=== PATIENT | female | born 1955 | race Caucasian/White ===

== ENCOUNTER 2021-07-26 16:24 | Observation (INO) ==
[2021-07-26] MEDS ORDERED: Ondansetron ODT 4 MG TAB.RAPDIS SL PRN (22:09)
[2021-07-26] MEDS ORDERED: Melatonin 3 MG TABLET PO PRN (22:09)
[2021-07-26] MEDS ORDERED: Naloxone 0.4 MG/ML INJ IVP PRN (22:09)
[2021-07-26] MEDS ORDERED: Albuterol 2.5 MG/3 ML NEBULIZER IH PRN (22:09)
[2021-07-26] MEDS ORDERED: Ipratropium/Albuterol Neb 3 ML IH PRN (22:15)
[2021-07-26] MEDS ORDERED: Dextrose Gel 15 GM/37.5 ML TUBE PO PRN ×2 (22:20)
[2021-07-26] MEDS ORDERED: D5% in Water 1,000 ML IVC PRN (22:20)
[2021-07-26] MEDS ORDERED: *HR* Dextrose 50 % in Water (Syg) 50 ML SYRINGE IVP PRN (22:20)
[2021-07-26] MEDS ORDERED: hydrOXYzine pamoate 25 MG CAPSULE PO PRN (22:32)
[2021-07-26 23:23] LABS: VBG HCO3 26 mEq/L (21-27); VBG PCO2 49 mmHg (41-51); VBG PH 7.34 pH Units (7.32-7.42); VBG PO2 59 mmHg (25-50)
[2021-07-26 23:33] LABS: Hematocrit 37.1 % (35.3-44.9); Hemoglobin 11.7 g/dL (11.5-15.4); Mean Corpuscular HGB Conc 31.5 g/dL (31.6-35.5); Mean Corpuscular Hemoglobin 31.2 pg (28.0-33.3); Mean Corpuscular Volume 98.9 fL (83.0-100.0); Mean Platelet Volume 10.7 fL (9.4-12.4); Platelet Count 222 K/mcL (140-400); Red Blood Count 3.75 M/mcL (3.82-4.97); Red Cell Distribution Width 13.6 % (11.5-14.5); White Blood Count 6.8 K/mcL (4.3-11.1)
[2021-07-26] MEDS: Pregabalin 75 MG CAPSULE PO SCH (23:37)
[2021-07-26] MEDS: Insulin LISPRO 300 UNITS/3 ML VIAL SUBQ SCH (23:38)
[2021-07-26 23:39] LABS: Estimated Average Glucose 189 mg/dl; Hemoglobin A1C 8.2 %
[2021-07-26 23:43] LABS: Albumin/Globulin Ratio 1.4 (1.1-2.2); Bilirubin,Total 0.4 mg/dL (0.3-1.0); Calcium 8.9 mg/dL (8.6-10.3); Globulin 2.9 g/dL (2.4-3.5); Potassium 4.1 mEq/L (3.5-5.1); Total Protein 6.9 g/dL (6.4-8.9)
[2021-07-26 23:56] LABS: Magnesium 2.2 mg/dL (1.6-2.6)
[2021-07-27 04:09] LABS: Sodium, Urine 33.2 mEq/L
[2021-07-27 04:14] LABS: Bacteria,Urine Few per hpf (None-Few); Bilirubin,Urine Negative (Negative); Blood,Urine Negative (Negative); Clarity,Urine Clear (Clear); Color,Urine Light-Yellow (Yellow); Glucose,Urine (UA) >=1000 mg/dL (Normal); Hyaline Casts,Urine Few per lpf (None Seen); Ketones,Urine Negative (Negative); Leukocyte Esterase,Urine Negative (Negative); Nitrite,Urine Negative (Negative); Protein,Urine Trace mg/dL (Neg-Trace); RBC,Urine 0-3 per hpf (0-3); Specific Gravity,Urine 1.017 (1.010-1.025); Squamous Epithelial Cell,Urine Few per hpf (None-Few); Urobilinogen,Urine Normal (Normal); WBC,Urine 0-3 per hpf (0-3)
[2021-07-27 04:50] LABS: Adenovirus Not Detected (Not Detect); Bordetella Pertussis Not Detected (Not Detect); Chlamydophila pneumoniae Not Detected (Not Detect); Coronavirus 229E Not Detected (Not Detect); Coronavirus HKU1 Not Detected (Not Detect); Coronavirus NL63 Not Detected (Not Detect); Coronavirus OC43 Not Detected (Not Detect); Human Metapneumovirus Not Detected (Not Detect); Human Rhinovirus/Enterovirus Not Detected (Not Detect); Influenza A Subtype 2009 H1 Not Detected (Not Detect); Influenza B Not Detected (Not Detect); Mycoplasma pneumoniae Not Detected (Not Detect); Parainfluenza Virus 1 Not Detected (Not Detect); Parainfluenza Virus 2 Not Detected (Not Detect); Parainfluenza Virus 3 Not Detected (Not Detect); Parainfluenza Virus 4 Not Detected (Not Detect); Respiratory Syncytial Virus Not Detected (Not Detect); SARS-CoV-2 Not Detected (Not Detect)
[2021-07-27] MEDS: Levothyroxine 25 MCG TABLET PO SCH (06:00)
[2021-07-27] MEDS: Insulin LISPRO 300 UNITS/3 ML VIAL SUBQ SCH ×4 (08:55→20:11)
[2021-07-27] MEDS ORDERED: Aspirin Enteric Coated 81 MG Tablet PO SCH (09:00)
[2021-07-27] MEDS ORDERED: Apixaban 5 MG TABLET PO SCH (09:00)
[2021-07-27] MEDS ORDERED: Pregabalin 75 MG CAPSULE PO SCH (09:00)
[2021-07-27] MEDS ORDERED: Furosemide 40 MG TABLET PO SCH (09:00)
[2021-07-27] MEDS: Aspirin Enteric Coated 81 MG Tablet PO SCH (09:09)
[2021-07-27] MEDS: *HR* Amiodarone 200 MG TABLET PO SCH (09:09)
[2021-07-27] MEDS: predniSONE 20 MG TABLET PO SCH (09:09)
[2021-07-27] MEDS: Pregabalin 75 MG CAPSULE PO SCH ×2 (09:09→20:08)
[2021-07-27] MEDS: Pantoprazole 40 MG VIAL IVP SCH (09:10)
[2021-07-27] MEDS: Folic Acid 1 MG TABLET PO SCH (09:10)
[2021-07-27] MEDS: Azithromycin 250 MG TABLET PO SCH (16:05)
[2021-07-27] MEDS: Acetaminophen 325 MG TABLET PO PRN (18:14)
[2021-07-27] MEDS: Artificial Tears SOLN 15 ML BOTTLE RIGHT EYE SCH ×2 (18:23→22:09)
[2021-07-27] MEDS ORDERED: Insulin LISPRO 300 UNITS/3 ML VIAL SUBQ SCH (21:00)
[2021-07-28] MEDS: methocarbamoL 750 MG TABLET PO SCH ×3 (00:56→17:02)
[2021-07-28 03:29] LABS: Hematocrit 37.5 % (35.3-44.9); Hemoglobin 12.1 g/dL (11.5-15.4); Mean Corpuscular HGB Conc 32.3 g/dL (31.6-35.5); Mean Corpuscular Hemoglobin 31.8 pg (28.0-33.3); Mean Corpuscular Volume 98.4 fL (83.0-100.0); Mean Platelet Volume 10.8 fL (9.4-12.4); Platelet Count 260 K/mcL (140-400); Red Blood Count 3.81 M/mcL (3.82-4.97); Red Cell Distribution Width 13.7 % (11.5-14.5); White Blood Count 8.1 K/mcL (4.3-11.1)
[2021-07-28 03:48] LABS: Calcium 8.9 mg/dL (8.6-10.3); Magnesium 2.3 mg/dL (1.6-2.6); Potassium 4.1 mEq/L (3.5-5.1)
[2021-07-28] MEDS: Acetaminophen 325 MG TABLET PO PRN (05:59)
[2021-07-28] MEDS: Levothyroxine 25 MCG TABLET PO SCH (05:59)
[2021-07-28] MEDS: Insulin LISPRO 300 UNITS/3 ML VIAL SUBQ SCH ×4 (08:40→21:50)
[2021-07-28] MEDS: predniSONE 20 MG TABLET PO SCH (08:48)
[2021-07-28] MEDS: Pregabalin 75 MG CAPSULE PO SCH ×2 (08:48→20:43)
[2021-07-28] MEDS: Pantoprazole 40 MG VIAL IVP SCH (08:48)
[2021-07-28] MEDS: Aspirin Enteric Coated 81 MG Tablet PO SCH (08:48)
[2021-07-28] MEDS: *HR* Amiodarone 200 MG TABLET PO SCH (08:49)
[2021-07-28] MEDS: Folic Acid 1 MG TABLET PO SCH (08:49)
[2021-07-28] MEDS: Artificial Tears SOLN 15 ML BOTTLE RIGHT EYE SCH ×4 (08:52→20:43)
[2021-07-28] MEDS: Azithromycin 250 MG TABLET PO SCH (08:52)
[2021-07-28] MEDS ORDERED: Simethicone 40 MG/0.6 ML MLS IR ONE (11:48)
[2021-07-28] MEDS ORDERED: Lidocaine -MPF 2% 5 ML VIAL ONE (12:40)
[2021-07-28] MEDS: Levalbuterol Neb 1.25 MG/3 ML IH SCH ×2 (16:33→16:44)
[2021-07-28 23:35] VITALS: TEMP 97.5
[2021-07-29] MEDS: methocarbamoL 750 MG TABLET PO SCH ×2 (00:36→07:56)
[2021-07-29] MEDS: Levalbuterol Neb 1.25 MG/3 ML IH SCH ×2 (02:01→07:40)
[2021-07-29 04:47] LABS: Calcium 8.6 mg/dL (8.6-10.3); Potassium 4.3 mEq/L (3.5-5.1)
[2021-07-29] MEDS: Levothyroxine 25 MCG TABLET PO SCH ×2 (06:29→07:56)
[2021-07-29 07:40] VITALS: BP 164/90; PULSE 64
[2021-07-29] MEDS: predniSONE 20 MG TABLET PO SCH (07:56)
[2021-07-29] MEDS: *HR* Amiodarone 200 MG TABLET PO SCH (07:56)
[2021-07-29] MEDS: Azithromycin 250 MG TABLET PO SCH (07:57)
[2021-07-29] MEDS: Pantoprazole 40 MG VIAL IVP SCH (07:57)
[2021-07-29] MEDS: Aspirin Enteric Coated 81 MG Tablet PO SCH (07:57)
[2021-07-29] MEDS: Folic Acid 1 MG TABLET PO SCH (07:57)
[2021-07-29] MEDS: Pregabalin 75 MG CAPSULE PO SCH (07:58)
[2021-07-29] MEDS: Insulin LISPRO 300 UNITS/3 ML VIAL SUBQ SCH ×2 (08:03→11:49)
[2021-07-29] MEDS: Artificial Tears SOLN 15 ML BOTTLE RIGHT EYE SCH ×2 (08:04→12:52)
[2021-07-29 11:23] VITALS: O2SAT 97
== END 2021-07-29 13:34 | disposition home or self-care (01) ==
LOC: 2ANU → SUATTDRO 20:11
PROVIDERS: ADMIT Pharmacist; ATTEND Student in an Organized Health Care Education/Training Program
PROC: ENDOEBX (2021-07-28 13:00)